=== PATIENT | female | born 1940 | race Caucasian/White ===

== ENCOUNTER 2020-07-10 06:23 | Observation (INO) ==
--- NOTE | 2020-06-28 13:46 | ANES ---
Anesthesia Pre Procedure Eval HOME MEDICATIONS acetaminophen 500 mg tablet 500 mg PO Q6H PRN 08/06/18 [Last Taken Unknown] atorvastatin 20 mg tablet 10 mg PO DAILY #45 tab 02/04/20 [Last Taken Unknown] lisinopril 20 mg-hydrochlorothiazide 25 mg tablet 1 tab PO DAILY #90 tab 02/04/20 [Last Taken Unknown] metoprolol succinate 100 mg tablet,extended release 24 hr 100 mg PO DAILY #90 tab 02/04/20 [Last Taken Unknown] Calcium Carbonate/Vitamin D3 [Calcium 600-Vit D3 2,500 Sftgl] 1 ea PO DAILY 06/28/20 [Last Taken Unknown] Levothyroxine Sodium [Synthroid] 50 mcg PO DAILY 06/28/20 [Last Taken Unknown] Allergies/Adverse Reactions: Allergies Allergy/AdvReac Type Severity Reaction Status Date / Time cephalexin Allergy hives Verified 06/26/20 10:04 doxycycline Allergy Itching Verified 06/28/20 08:36 amoxicillin AdvReac Unknown hives Verified 06/26/20 10:04 - Planned Procedure Planned Procedure: lt Arthroplasty Total Knee Medication List Reviewed:: Yes Allergies Verified: Yes Medical History (Last Reviewed 06/19/20 @ 11:10 by Cassandra Styles CMA) Knee pain, left (Acute) Onset Date: Unknown GERD (gastroesophageal reflux disease) Hyperlipidemia Hypertension Hypothyroidism Osteoarthritis Anxiety Onset Date: ~2013 Fatigue Onset Date: Unknown Atrophic vaginitis Onset Date: Unknown Cystocele Onset Date: Unknown Surgical History (Last Reviewed 06/19/20 @ 11:10 by Cassandra Styles CMA) History of cholecystectomy Onset Date: ~1981 History of colonoscopy Onset Date: ~2009 History of dilation and curettage Onset Date: ~1986 History of tonsillectomy Onset Date: ~1944 History of wisdom tooth extraction Onset Date: Unknown Family History (Last Updated 06/28/20 @ 08:35 by Karen Martinez RN) Father Heart disease Mother Kidney failure Cancer bladder Other Patient's sister is - Family Anesthesia History Family History:: no untoward family reactions to anesthesia, no familial bleeding tendencies, no family history of clotting disorders, no family history of premature - Airway/Neck/Teeth Within Normal Limits:: Yes Teeth Condition: intact Denture Type: Perm crown/bridge Mallampatti Score: 1 Thyromental (T-M) distance: > 6 cm Mandibulo Hyoid distance: > 3 cm - Respiratory Smoking Status: Never smoker Discussed smoking cessation including day of surgery: No Sleep Apnea currently treated: No Sleep Apnea by current assessment: No Discussed Risks/Treatment of CONY: No - Cardiovascular Cardiac History: arrhythmia Tolerate Activity: Fair Heart Sounds: S1 & S2, Regular - Anesthesia Assessment and Plan ASA Class: PS, III Anesthesia Type Plan: Block - Left ultrasound guided adductor canal nerve block, Spinal
[~2020-07-10 06:23] MED LIST: ISOPROPYL ALCOHOL 480 APPL BTL MC ONE; MORPHINE SULFATE 15 MG TABLET.SA PO PRN; ROPIVACAINE HCL/PF 100 MG, EPINEPHrine 0.2 MG, KETOROLAC TROMETHAMINE 30 MG in NORMAL S... IJ PRN; TRANEXAMIC ACID 1,000 MG in NORMAL SALINE 100 ML IV PRN; ceFAZolin SODIUM 1 GM VIAL IV PRN; ceFAZolin SODIUM 1 GM VIAL ONE
[2020-07-10] MEDS ORDERED: ONDANSETRON HCL/PF 2 MG/ML VIAL ONE (06:50)
[2020-07-10] MEDS ORDERED: BUPIVACAINE HCL IN DEXTROSE/PF 2 ML AMPUL ONE (06:51)
[2020-07-10] MEDS ORDERED: DEXAMETHASONE SODIUM PHOSPHATE 4 MG/ML VIAL ONE ×2 (06:51→07:11)
[2020-07-10] MEDS ORDERED: LIDOCAINE HCL/PF 2 ML VIAL ONE (06:51)
[2020-07-10] MEDS ORDERED: PROPOFOL VIAL IV ONE (06:51)
[2020-07-10] MEDS ORDERED: BUPIVACAINE HCL/EPINEPHRINE 50 ML VIAL ONE (06:52)
[2020-07-10] MEDS ORDERED: fentaNYL CITRATE/PF 50 MCG/ML AMPUL ONE (07:10)
[2020-07-10] MEDS ORDERED: MIDAZOLAM HCL/PF 1 MG/ML VIAL ONE (07:11)
[2020-07-10] MEDS ORDERED: SEVOFLURANE 250 ML BTL IH ONE (07:11)
[2020-07-10] MEDS: RINGER'S SOLUTION,LACTATED 1,000 ML IV PRN ×2 (07:17→08:45)
[2020-07-10] MEDS ORDERED: PHENYLEPHRINE HCL 10 MG/ML AMPUL ONE (07:40)
--- NOTE | 2020-07-10 07:51 | ANES ---
Anesthesia Pre Procedure Eval Vitals/Labs: Last Vital Signs Temp 36.4 C 07/10/20 06:30 Pulse 80 07/10/20 06:30 Resp 16 07/10/20 06:30 BP 134/69 07/10/20 06:30 Pulse Ox 97 07/10/20 06:30 HOME MEDICATIONS acetaminophen 500 mg tablet 500 mg PO Q6H PRN 08/06/18 [Last Taken Unknown] atorvastatin 20 mg tablet 10 mg PO DAILY #45 tab 02/04/20 [Last Taken Unknown] lisinopril 20 mg-hydrochlorothiazide 25 mg tablet 1 tab PO DAILY #90 tab 02/04/20 [Last Taken 07/10/20 05:45] metoprolol succinate 100 mg tablet,extended release 24 hr 100 mg PO DAILY #90 tab 02/04/20 [Last Taken 07/10/20 05:45] Calcium Carbonate/Vitamin D3 [Calcium 600-Vit D3 2,500 Sftgl] 1 ea PO DAILY 06/28/20 [Last Taken Unknown] Levothyroxine Sodium [Synthroid] 50 mcg PO DAILY 06/28/20 [Last Taken Unknown] Allergies/Adverse Reactions: Allergies Allergy/AdvReac Type Severity Reaction Status Date / Time cephalexin Allergy hives Verified 07/10/20 06:54 doxycycline Allergy Itching Verified 07/10/20 06:54 amoxicillin AdvReac Unknown hives Verified 07/10/20 06:54 - Planned Procedure Planned Procedure: Left Total Knee Arthroplasty Medication List Reviewed:: Yes Allergies Verified: Yes Medical History (Last Reviewed 07/10/20 @ 07:49 by Emmanuel Perrin CRNA) Knee pain, left (Acute) Onset Date: Unknown GERD (gastroesophageal reflux disease) Hyperlipidemia Hypertension Hypothyroidism Osteoarthritis Anxiety Onset Date: ~2013 Fatigue Onset Date: Unknown Atrophic vaginitis Onset Date: Unknown Cystocele Onset Date: Unknown Surgical History (Last Reviewed 07/10/20 @ 07:50 by Emmanuel Perrin CRNA) History of cholecystectomy Onset Date: ~1981 History of colonoscopy Onset Date: ~2009 History of dilation and curettage Onset Date: ~1986 History of tonsillectomy Onset Date: ~1944 History of wisdom tooth extraction Onset Date: Unknown Family History (Last Reviewed 07/10/20 @ 07:50 by Emmanuel Perrin CRNA) Father Heart disease Mother Kidney failure Cancer bladder Other Patient's sister is - Family Anesthesia History Family History:: no untoward family reactions to anesthesia - Airway/Neck/Teeth Within Normal Limits:: Yes Teeth Condition: intact Neck Exam: full range of motion Mallampatti Score: 2 Thyromental (T-M) distance: > 6 cm Mandibulo Hyoid distance: > 3 cm - Respiratory Respiratory Physical: lungs clear Smoking Status: Former smoker Sleep Apnea currently treated: No Sleep Apnea by current assessment: No - Cardiovascular Cardiac History: hypertension Tolerate Activity: Good Heart Sounds: S1 & S2, Regular - Gastrointestinal NPO since: 8 hours npo - Anesthesia Assessment and Plan ASA Class: III Anesthesia Type Plan: MAC, Block, Spinal Planned difficult intubation/equipment available: No
--- NOTE | 2020-07-10 09:50 | OR ---
Operative Report - Dictated Report Narrative: Date: 07/10/2020 Preoperative diagnosis: Left knee degenerative joint disease. Postoperative diagnosis: Left knee degenerative joint disease. Procedure: Left total knee arthroplasty. Surgeon: Eliseo Funez M.D. Drilling Field Specialist: Ben Cordova PA-C (provided and essential set of skilled, educated hands that assisted with transfer, positioning, prepping, draping, manipulation, retraction, placement of jigs, injection, insertion of implants, irrigation, closure wounds, and dressings all of which could not be performed by the available surgical crew) Anesthesia: Spinal with regional block and local periarticular joint injection. Complications: None Specimens: Bone. Estimated blood loss: Minimal. Tourniquet time: 85 Minutes at 325 millimeters of mercury. Retained implants: Depuy Attune size 6 narrow left lugged cemented posterior stabilized femoral component. Size 5 fixed-bearing cemented tibial platform. 6 by 7 millimeter posterior stabilized cross-linked tibial insert. 41 millimeter medialized patella button. Indications: Mrs. Phelps is a 80-year-old female who has had longstanding left knee pain and arthrosis. This patient was followed in my clinic for period of time with significant complaints of left knee pain consistent with arthritic changes. She had failed conservative measures including, but not limited to, activity modification, passage of time, medications, and other conservative measures. Patient wished to proceed with surgical treatment. The risks, benefits, and alternatives were discussed in clinic. The risks of , blood clots, bleeding, infection, nerve/tendon blood vessel/ injury, malposition of components, intraoperative fracture, postoperative limited range of motion, persistent pain, failure of components, and need for additional procedures. Patient wished to proceed consent was obtained after answering all questions. Procedure: After marking the correct extremity on the floor, the patient was taken to the operating room. A timeout was performed. IV antibiotics consisting of Ancef were administered prior to the procedure. A regional followed by spinal anesthetic was induced by anesthesia, per my request, on the operative table with all bony prominences well-padded. De La Rosa catheter was placed, and a bump was placed under the operative side buttock. SCDs and SHARIF hose were utilized on the nonoperative leg. A well-padded tourniquet was applied to the operative thigh. The operative leg was then pre-scrubbed with alcohol, prepped, and draped in a standard sterile fashion. After exsanguinating the extremity with an Esmarch bandage, the tourniquet was inflated. After marking out the anterior knee for standard incision centered over the patella, the skin was incised and dissected down to the joint retinaculum. The joint retinaculum was marked out as well as the horizontal axis of the patella, and a standard medial parapatellar arthrotomy was then made. The most proximal aspect of the quadriceps tendon and the patella tendon insertion were protected from release. A partial synovectomy was performed as well as a resection of the infrapatellar fat pad. The distal femoral fat pad proximal to the trochlea was also resected using cautery. The soft tissues were elevated off the medial a spect of the proximal tibia using a Jorgensen elevator ensuring that we did not transect the medial collateral ligament. Upon initial evaluation range of motion was approximately 0 degrees to 130 degrees of flexion. There were signs of advanced arthrosis in the medial and patellofemoral greater than lateral joint spaces. There were large marginal osteophytes which were removed with a rongeur. The knee was hyperflexed and the patella was tucked laterally. Protecting the surrounding soft tissues with Homans, an entry drill was placed down the femoral canal using Whitesides line for guidance into the entry point. The intramedullary femoral alignment manny was utilized in order to cut the distal femur in 5 degrees of valgus resecting 10 millimeters of bone. Next the distal femur was sized to a size 6. A posterior referencing guide was utilized to place the distal femoral cutting block in 3 degrees of external rotation. This was pinned into place. The rotation was confirmed both visually and based on anatomic landmarks. The 4 in 1 cutting jig of the appropriate size was utilized in order to make all bony cuts. The marycarmen wing was used to ensure no notching. Retractors were utilized in order to protect surrounding soft tissues. This cut did not result in any excessive notching. We then cut the box centered over the distal femur. This allowed for resection of the anterior and posterior cruciate ligaments. I then turned my attention to the preparation of the tibia. Using an extra medullary tibial alignment manny, 3 millimeters of bone was resected off the medial articular surface. This was made perpendicular to the mechanical axis of the joint with the alignment manny centered over the ankle mortise. The alignment manny was checked and was noted to be parallel to the me chanical axis, centered over the medial one third of the tibial tubercle, paralleling the anterior surface of the tibia. We then turned our attention to the remaining meniscus and soft tissues. These were removed while protecting the surrounding ligaments and soft tissues. The marginal osteophytes off the anterior, posterior, medial, lateral aspects of the femur and tibia were removed. The tibia was sized out to a size 5. Next the tibia was drilled and punched in an externally rotated position. Next the trial femur and a series of tibial inserts were utilized in order to allow for full extension and maximal flexion. It was found that a 7 millimeter insert gave the best range of motion and stability at multiple flexion points as well as at full extension there was less than 2 mm of gapping both medially and laterally. There is minimal anterior translation with the knee at 90 degrees of flexion and no signs of being able to dislocate the knee. The patella was then prepared. The initial thickness was 22 millimeters. This was reamed down to 13 millimeters parallel to the anterior surface of the patella. It was sized out to a size 41 medialized patella button. This was then drilled and trialed. Without any medial restraint the patella tracked appropriately and did not sublux or dislocate. At this point, it was felt these were the appropriate sized implants, and all tr ials were removed. The standard periarticular joint injection consisting of ropivacaine, Toradol, and epinephrine were injected into the periarticular joint tissues. The bony surfaces were thoroughly irrigated with a pulsatile-suction saline irrigation device. A bone plug from the prior resected anterior chamfer cut was placed into the drill hole at the distal femur. The bony surfaces were then dried in preparation for placement of the implants. The cement was vacuum mixed per the clamshell operator's instructions. The cement was placed on the dry bony surfaces and posterior aspect of the implants. The implants were impacted into place, removing all extruded cement. At this point anesthesia administered tranexamic acid per protocol intravenously. The knee was placed in extension with axial loading with the trial insert while the cement cured. Once the cement cured, all remaining extruded cement was removed. The knee was placed through a range of motion with the trial insert to ensure appropriate range of motion and stability. Final range of motion was approximately 0 to 130 degrees. The knee was again thoroughly irrigated with pulsatile saline lavage. The final polyethylene insert was then impacted into place ensuring no retained soft tissues. The remaining periarticular joint injection was injected. A medium Hemovac drain was placed exiting superior laterally. The knee was then placed over a triangle and the arthrotomy was closed with interrupted #1 Vicryl after thoroughly irrigating the joint. The deep and subcutaneous tissues were closed with interrupted 0 and 3-0 Vicryl respectively. Skin was closed with a running subcutaneous 3-0 Monocryl and Prineo Dermabond dressing. 4 x 4's, Sof-Rol, and a full leg Lex wrap were applied. All sponge, needle, blade, and instrument counts were correct prior to closing the wounds. Postoperative condition: The patient was awoken and transferred to the postanesthesia care unit in stable condition. Plan is to be admitted to the inpatient medical/surgical floor postoperatively for 24 hours of IV antibiotics, physical therapy, occupational therapy, and medical comanagement. Patient will be weightbearing as tolerated with range of motion as tolerated. DVT prophylaxis will be with SCDs, SHARIF hose, and pharmacological anticoagulation. Anticipated hospital stay is approximately 1-3 days.
[2020-07-10] MEDS ORDERED: ZOLPIDEM TARTRATE 5 MG TABLET PO PRN (09:51)
[2020-07-10] MEDS ORDERED: DEXTROSE 5%-LACTATED RINGERS 1,000 ML IV PRN (09:51)
[2020-07-10] MEDS ORDERED: MAGNESIUM HYDROXIDE 30 ML UDC PO PRN (09:51)
[2020-07-10] MEDS ORDERED: ACETAMINOPHEN 500 MG TABLET PO PRN (09:51)
[2020-07-10] MEDS ORDERED: MORPHINE SULFATE 4 MG/ML SYRG IV PRN ×2 (09:51→10:15)
[2020-07-10] MEDS ORDERED: diphenhydrAMINE HCL 50 MG/ML VIAL IV PRN ×2 (09:51→10:15)
[2020-07-10] MEDS ORDERED: MAG HYDROX/ALUMINUM HYD/SIMETH 30 ML UDC PO PRN (09:51)
[2020-07-10] MEDS ORDERED: ONDANSETRON HCL/PF 2 MG/ML VIAL IV PRN (09:51)
--- NOTE | 2020-07-10 10:14 | ANES ---
Anesthesia Procedure Note Procedure Note: Ultrasound guided Left Adductor Canal Block for post op pain control per surgeon. Patient given 2mg versed and 70 mg propofol. Patient supine. Left thigh chloropreped and adductor canal visualized with ultrasound. Stimuplex needle inserted into canal and aspirated negative. 15 ml of 0.5% bupivicaine with epi was given in 5cc increments with aspiration every 5 minutes. Patient tolerated procedure well. Pre and Post injection ultrasound pictures saved in chart.
[2020-07-10] MEDS ORDERED: HYDROmorphone HCL 2 MG/ML VIAL IV PRN (10:15)
[2020-07-10] MEDS ORDERED: PROCHLORPERAZINE EDISYLATE 5 MG/ML VIAL IV PRN (10:15)
[2020-07-10] MEDS ORDERED: NALOXONE HCL 0.4 MG/ML VIAL IV PRN (10:15)
--- NOTE | 2020-07-10 10:19 | ANES ---
Post Anesthesia Assessment - Vital Signs Vitals: Last Vital Signs Temp 36.4 C 07/10/20 06:30 Pulse 80 07/10/20 06:30 Resp 16 07/10/20 06:30 BP 134/69 07/10/20 06:30 Pulse Ox 97 07/10/20 06:30 Airway Patency: Normal - Mental Status Level Of Consciousness: Awake, Alert, Appropriate, Follows Commands - Pain Level Pain Score: 4 - N/V Assessment Nausea/Vomiting Presence: None Dehydration:: No
--- NOTE | 2020-07-10 10:21 | ANES ---
Post Anesthesia Discharge - Transfer of Care Transfer of Care handoff given to nurse: Yes - Discharge from PACU Discharge from PACU when meets criteria: Yes - Discharge to ASU Discharge to ASU-no complications/pt stable: Yes - Anesthesia Post Op Note Anesthesia Post Op Note: patient to observation
[2020-07-10] MEDS: KETOROLAC TROMETHAMINE 15 MG/ML VIAL IV SCH ×3 (11:03→21:42)
[2020-07-10] MEDS: ceFAZolin SODIUM 1 GM in DEXTROSE 5 % IN WATER 100 ML IV SCH ×4 (12:41→18:05)
[2020-07-10] MEDS: oxyCODONE HCL/ACETAMINOPHEN 1 TAB TABLET PO PRN (16:18)
[2020-07-10] MEDS ORDERED: SENNOSIDES/DOCUSATE SODIUM 1 TAB TABLET PO SCH (21:00)
[2020-07-11] MEDS: ceFAZolin SODIUM 1 GM in DEXTROSE 5 % IN WATER 100 ML IV SCH ×2 (00:52)
[2020-07-11] MEDS: oxyCODONE HCL/ACETAMINOPHEN 1 TAB TABLET PO PRN (02:20)
[2020-07-11] MEDS: KETOROLAC TROMETHAMINE 15 MG/ML VIAL IV SCH ×3 (04:43→17:54)
[2020-07-11 06:33] LABS: Hematocrit 29.4 % (37.0-47.0); Hemoglobin 9.7 gm/dL (12.5-16.0); Mean Corpuscular Hemoglobin 30.7 pg (27-31); Mean Platelet Volume 10.4 fl (8-12.5); Platelet Count 183 K/mm3 (150-450); Red Blood Count 3.16 M/mm3 (4.2-5.4); Red Cell Distribution Width 11.5 % (11.5-14.0); White Blood Count 11.6 K/mm3 (4.0-10.5)
[2020-07-11 06:58] LABS: Anion Gap 12.6 mmol/L (6.8-13.8); BUN/Creatinine Ratio 14.7 (9.0-21.6); Calcium * 8.5 mg/dL (7.9-10.9); Carbon Dioxide 26.3 mmol/L (24-32.6); Estimated Creat Clear 29.9; Potassium 3.9 mmol/L (3.4-4.6)
[2020-07-11] MEDS ORDERED: oxyCODONE HCL/ACETAMINOPHEN 1 TAB TABLET PO PRN (08:06)
[2020-07-11] MEDS ORDERED: ENOXAPARIN SODIUM 40 MG/0.4 ML SYRG SC SCH (08:51)
[2020-07-11] MEDS ORDERED: ROSUVASTATIN CALCIUM 10 MG TABLET PO SCH ×2 (09:00→21:00)
[2020-07-11] MEDS ORDERED: LISINOPRIL 20 MG TABLET PO SCH (09:00)
[2020-07-11] MEDS ORDERED: HYDROCHLOROTHIAZIDE 25 MG TABLET PO SCH (09:00)
[2020-07-11] MEDS ORDERED: LEVOTHYROXINE SODIUM 50 MCG TABLET PO SCH (09:00)
[2020-07-11] MEDS ORDERED: METOPROLOL SUCCINATE 100 MG TABLET.SA PO SCH (09:00)
[2020-07-11] MEDS ORDERED: CALCIUM CARBONATE/VITAMIN D3 1 TAB TABLET PO SCH (09:00)
[2020-07-11] MEDS ORDERED: HYDROmorphone HCL 1 MG/ML DISP.SYRIN IV PRN (10:00)
[2020-07-11] MEDS ORDERED: MORPHINE SULFATE 2 MG/ML DISP.SYRIN IV PRN (10:00)
--- NOTE | 2020-07-11 16:14 | DS ---
(1) Status post left knee replacement Problem: Acute (2) Hypertension Problem: Chronic (3) Hypercholesterolemia Problem: Chronic (4) Hypothyroidism Problem: Chronic Date of Discharge:: 07/11/20 Hospital Course: Mrs. Phelps was admitted to the floor after undergoing left total knee arthroplasty. Tolerated this well. Was admitted to the floor postoperatively for 24 hours of IV antibiotics, pain control, medical comanagement, and occupational and physical therapy. OT and PT were consulted to assist with activities of daily living and ambulation. Was made weightbearing as tolerated with range of motion as tolerated. Pain was initially controlled with IV regimen. This was transitioned to oral once tolerating a by mouth intake. Was resumed on home diet and medications. Had a De La Rosa catheter inserted and the operating room which was discontinued on postoperative day 1. A drain was placed intraoperatively into the knee which was discontinued on postoperative day 1. Lovenox SCD and SHARIF hose were utilized for DVT prophylaxis. Vital signs remained stable to the hospital course. Serial labs were obtained which showed a final hemoglobin of 9.7 grams. BMP was reviewed and was stable. Physical examination throughout the hospital course showed an extremity that had sensation that was intact to light touch, palpable pulses, a benign wound, motor intact to the toes, ankle, and knee. Knee range of motion was approximately 0 degrees to 75 degrees. Once an oral pain regimen was tolerated and physical therapy goals were met, it was felt that they were stable for discharge to home. Instructions: Continue with weightbearing as tolerated and range of motion as tolerated. It is OK to shower on the wound if it is not draining. If you note any drainage or for comfort you can cover with dry gauze and tape. Change every 2-3 days as needed. Continue with physical therapy. Resume home diet. Report any fever over 101.5 Fahrenheit, uncontrolled pain, increased drainage, foul odor of drainage, new or increased calf pain or shortness of breath, or any other significant complaints. A 325mg dialy aspirin will be started after finishing anticoagulation if not allergic. Continue with SHARIF hose on the operative extremity until instructed otherwise. No driving until instructed otherwise. Follow up in approximately 10-14 days. Procedures Performed: see notes below List Procedures: Left total knee arthroplasty Results and Findings: Lab Pending Results 07/11/20 06:30: WBC 11.6 H, RBC 3.16 L, Hgb 9.7 L, Hct 29.4 L, MCV 93.0, MCH 30.7, MCHC 33.0, RDW 11.5, Plt Count 183, MPV 10.4 07/11/20 06:30: Sodium 128 L, Plasma Sodium 128 L, Potassium 3.9, Chloride 93 L, Carbon Dioxide 26.3, Anion Gap 12.6, BUN 20, Creatinine 1.36, Est GFR (Non-Af Amer) 40 L D, BUN/Creatinine Ratio 14.7, Random Glucose 113 H, Calcium 8.5 Discharge Location: Home Disposition: Home self-care Condition: Good Discharge Activity: Activity as tolerated, Weight bearing, Other - With wheeled walker Discharge Diet: Consistent carbs, Low salt Referrals: Hilda Ann MD [Primary Care Provider] - Ben Cordova PAC [Lithographic Photographer] - 08/01/20 9:00 am Problem Oriented Discharge Instructions to Patient/Family: Total Knee Replacement, Care After, [id number] Additional Patient Instructions (free text): Physical Therapy appointment at [facility] on 07/13/2020 @ 09:45am.Follow up in the office with Ben Cordova on 08-01-20 at 9:00am. Prescriptions (Any new or edited meds): Enoxaparin Sodium [Lovenox] 40 mg SC Q24H #7 disp.syrin Transmission Status: Pending to [place], [place] oxyCODONE HCL/ACETAMINOPHEN [Percocet 5 MG/325 MG] 1 tab PO Q3H PRN #56 tab PRN Reason: Pain Transmission Status: Received by [place], [place] Sennosides/Docusate Sodium [Senokot-S] 2 tab PO HS #30 tab Transmission Status: Pending to [place], [place] Ondansetron HCl [Zofran] 4 mg PO TID PRN #30 tab PRN Reason: Nausea Transmission Status: Pending to [place], [place] Complete Home Medications List: Complete Home Medication List: acetaminophen 500 mg tablet 500 mg PO Q6H PRN 08/06/18 atorvastatin 20 mg tablet 10 mg PO DAILY #45 tab 02/04/20 lisinopril 20 mg-hydrochlorothiazide 25 mg tablet 1 tab PO DAILY #90 tab 02/04/20 metoprolol succinate 100 mg tablet,extended release 24 hr 100 mg PO DAILY #90 tab 02/04/20 Calcium Carbonate/Vitamin D3 [Calcium 600-Vit D3 2,500 Sftgl] 2 ea PO DAILY 06/28/20 Levothyroxine Sodium [Synthroid] 25 mcg PO DAILY 06/28/20 Enoxaparin Sodium [Lovenox] 40 mg SC Q24H #7 disp.syrin 07/11/20 Ondansetron HCl [Zofran] 4 mg PO TID PRN #30 tab 07/11/20 Sennosides/Docusate Sodium [Senokot-S] 2 tab PO HS #30 tab 07/11/20 oxyCODONE HCL/ACETAMINOPHEN [Percocet 5 MG/325 MG] 1 tab PO Q3H PRN #56 tab 07/11/20 Amb Orders for Discharge: PT Evaluation and Treatment* Facility: [facility], Location: Rehabilitation Services Forms: Patient Portal Registration
[2020-07-11 18:17] VITALS: BP 155/65
== END 2020-07-11 18:25 | disposition home or self-care (01) ==
LOC: SUR 06:23 → MS 06:23
PROVIDERS: ADMIT Orthopaedic Surgery; ATTEND Orthopaedic Surgery
CPT/HCPCS: 36415; 73560; 80048; 85027; 96365; 96366; 96375; 96376; 97110; 97116; 97162; 97165; 97535; G0378; J2405